=== PATIENT | male | born 1955 | race Caucasian/White ===

== ENCOUNTER 2022-11-20 09:58 | Day surgery (SDC) | payer BC, MEDICARE ==
[~2022-11-20] VITALS: Ht 176.5 cm; Wt 101.2 kg
[~2022-11-20 09:58] MED LIST: ALDACTONE 25MG25 M1 PO; ASPIR-LOW81 MG PO; CEPHALEXIN500 M1 PO; CLOPIDOGREL PO; CORDARONE200 MG/TAB PO; CRESTOR 10MG10 MG PO; ELIQUIS 5MG PO; FLAGYL500 MG PO; GLUCOPHAGE500 MG/TAB PO; LASIX 40MG TABL40 MG PO; LEVOTHYROXINE PO; LORTAB 5/500 501 TAB PO; NAPROSYN PO; PLAVIX 75MG TAB75 MG PO; PRINZIDE 12.5 M1 TAB PO; PROTONIX 40MG T40 MG PO; RYBELSUS3 MG PO; SOMA350 MG PO; [UNRECOGNIZED DRUG - OTHER]
[2022-11-20 10:48] VITALS: BP 171/94; PULSE 67; TEMP 97.3
[2022-11-20] MEDS ORDERED: JARDIANCE25 (10:54)
[2022-11-20] MEDS ORDERED: VITAMIN D 50,1.25 MG PO (10:55)
[2022-11-20] MEDS ORDERED: MESTINON 6060 MG/TAB PO (10:57)
[2022-11-20] MEDS ORDERED: TOPROL XL 50MG50 MG PO (10:58)
[2022-11-20 13:03] VITALS: BP 126/74; PULSE 58; TEMP 96
== END 2022-11-20 13:45 | disposition home or self-care (01) ==
LOC: SDCO 09:58
DX: R13.10 Dysphagia, unspecified (principal); R10.13 Epigastric pain; R11.11 Vomiting without nausea; K21.9 Gastro-esophageal reflux disease without esophagitis
CPT/HCPCS: J2704; J7120